=== PATIENT | male | born 1955 | race Asian ===

== ENCOUNTER 2017-06-14 13:42 | Emergency (ER) | payer OTHER ==
[~2017-06-14] VITALS: Ht 167.6 cm; Wt 45.4 kg
[~2017-06-14 13:42] MED LIST: ZESTRIL40 MG PO
[2017-06-14 13:58] VITALS: TEMP 97.1
[2017-06-14 17:00] VITALS: BP 132/90
== END 2017-06-14 17:00 | disposition home or self-care (01) ==
LOC: ED 13:42
DX: I16.0 Hypertensive urgency (principal); W18.39XA Other fall on same level, initial encounter; Y92.89 Other specified places as the place of occurrence of the external cause
CPT/HCPCS: 36415; 90715; 96374; 96375; 99283; 99284; J0360; J1170

== ENCOUNTER 2017-06-24 12:48 | Observation (INO) | payer OTHER ==
[2017-06-24] VITALS (10 sets, daily range): BP systolic 130–163; BP diastolic 76–98; TEMP 97.6–98.4; Ht 167.6 cm; Wt 50.3 kg
[~2017-06-24] VITALS: Ht 167.6 cm; Wt 50.3 kg
[2017-06-24] MEDS ORDERED: ZANTAC 75 PO (13:10)
[2017-06-24] MEDS ORDERED: AMLODIPINE BESYLATE PO (13:11)
[2017-06-24] MEDS ORDERED: ABACAVIR SULFAT1 TAB PO (13:12)
[2017-06-24 13:20] LABS: PLATELET COUNT 304 K/uL (142-355)
[2017-06-24 13:32] LABS: POTASSIUM 4.1 mmol/L (3.6-5.2)
[2017-06-24 13:53] LABS: PARTIAL THROMBOPLASTIN TIME 25.4 SECONDS (24.5-33.6)
[2017-06-25] VITALS: BP 153/78; TEMP 98.4
[2017-06-25 04:00] VITALS: BP 148/71; TEMP 97.5
[2017-06-25 05:54] LABS: PLATELET COUNT 229 K/uL (142-355)
[2017-06-25 06:16] LABS: POTASSIUM 4.2 mmol/L (3.6-5.2)
[2017-06-25 08:00] VITALS: BP 140/74; TEMP 97.8
[2017-06-25 12:00] VITALS: BP 138/77; TEMP 98.7
[2017-06-25] MEDS ORDERED: ZESTRIL40 MG PO (15:15)
[2017-06-25] MEDS ORDERED: XARELTO15 MG PO (15:15)
[2017-06-25] MEDS ORDERED: PROTONIX 40MG TAB PO (15:15)
== END 2017-06-25 15:45 | disposition home or self-care (01) ==
LOC: ED 12:48 → MED/SURG 16:22
PROVIDERS: ADMIT Specialist
DX: R07.89 Other chest pain (principal); R06.02 Shortness of breath
CPT/HCPCS: 36415; 80053; 81000; 82550; 83880; 84484; 85027; 85379; 85610; 85730; 93005; 94760; 96365; 96366; 99220; 99284; G0378; J1644

== ENCOUNTER 2017-07-08 10:20 | Outpatient (CLI) | payer OTHER ==
[~2017-07-08 10:20] MED LIST changes: +ABACAVIR SULFAT1 TAB PO; +AMLODIPINE BESYLATE PO; +PROTONIX 40MG TAB PO; +XARELTO15 MG PO; +ZANTAC 75 PO
== END 2017-07-08 19:41 | disposition home or self-care (01) ==
LOC: NM 10:20
DX: R06.02 Shortness of breath (principal); R07.89 Other chest pain; I10 Essential (primary) hypertension; R79.1 Abnormal coagulation profile
CPT/HCPCS: A9540; A9567

== ENCOUNTER 2022-08-31 17:19 | Emergency (ER) | payer OTHER ==
[~2022-08-31] VITALS: Ht 167.6 cm; Wt 57.2 kg
[2022-08-31 17:19] VITALS: TEMP 97.9
[2022-08-31 18:25] VITALS: BP 166/85
== END 2022-08-31 18:25 | disposition home or self-care (01) ==
LOC: ED 17:19
DX: M10.9 Gout, unspecified (principal); I10 Essential (primary) hypertension; F17.210 Nicotine dependence, cigarettes, uncomplicated
CPT/HCPCS: 84550; 99283